=== PATIENT | female | born 1960 | race Asian ===

== ENCOUNTER 2023-08-18 08:00 | Outpatient (CLI) | payer OTHER ==
--- NOTE | 2023-08-18 18:03 | XRAY Report ---
Chest 2V HISTORY: BRONCHITIS COMPARISON: None. TECHNIQUE: 2 views of the chest are submitted for interpretation. FINDINGS/IMPRESSION: No pleural effusion or pneumothorax. No pulmonary edema or focal consolidation. Normal cardiomediastinal silhouette. Reviewed by: Maeve Anna MD on 08/18/2023 6:02 PM PDT Approved by: Maeve Anna MD on 08/18/2023 6:02 PM PDT Station ID: [id number]
== END 2023-08-18 23:59 | disposition home or self-care (01) ==
LOC: DI.S 08:00
PROVIDERS: ATTEND Emergency Medicine
DX: J20.9 Acute bronchitis, unspecified (principal)